=== PATIENT | female | born 1970 | race Caucasian/White ===

== ENCOUNTER 2018-04-20 14:38 | Emergency (ER) | payer MEDICAID ==
[~2018-04-20] VITALS: Ht 167.6 cm; Wt 43.0 kg
[2018-04-20 15:17] LABS: URINE HCG NEGATIVE (NEG)
[2018-04-20 15:19] LABS: BASOPHILS % (AUTO) 0.3 % (0-1); EOSINOPHILS # (AUTO) 0.4 X10'3 (0-0.9); EOSINOPHILS % (AUTO) 2.8 % (0-6); HEMATOCRIT 43.4 % (35.0-45.0); HEMOGLOBIN 14.3 g/dl (12.0-16.0); LYMPHOCYTES % (AUTO) 14.2 % (21-51); MEAN CORPUSCULAR HEMOGLOBIN 28.9 PG (27.0-31.0); MEAN CORPUSCULAR VOLUME 87.6 FL (78-98); MEAN PLATELET VOLUME 9.8 FL (7.4-10.4); MONOCYTES # (AUTO) 0.8 X10'3 (0-0.9); MONOCYTES % (AUTO) 5.7 % (2-12); PLATELET COUNT 248 X10'3 (140-440); RED BLOOD COUNT 4.95 X10'6 (4.20-5.60); RED CELL DISTRIBUTION WIDTH 13.1 % (11.5-14.5); WHITE BLOOD COUNT 14.4 X10'3 (4.5-11.0)
[2018-04-20 15:21] LABS: CLARITY,URINE SLIGHTLY CLOUDY (Clear); COLOR,URINE YELLOW (Yellow); GLUCOSE, URINE NEGATIVE (Neg); KETONES,URINE NEGATIVE (Neg); LEUKOCYTE ESTERASE ,URINE NEGATIVE (Neg); NITRITES, URINE POSITIVE (Neg); OCCULT BLOOD,URINE NEGATIVE (Neg); PROTEIN,URINE NEGATIVE (Neg); UROBILINOGEN,URINE 0.2 E.U/dL (0.2-1.0)
[2018-04-20 15:23] LABS: UA COLLECTION TYPE CLN CATCH MIDSTREAM
[2018-04-20 15:29] LABS: BACTERIA,URINE 4+ /HPF (Neg); MUCUS STRANDS NONE SEEN /LPF (Neg); RBC,URINE 0-2 /HPF (0-2); SQUAMOUS EPITHELIAL CELL,UR MODERATE /LPF (FEW); WBC,URINE 0-4 /HPF (0-4)
[2018-04-20 15:32] LABS: PROTHROMBIN TIME 10.6 SECONDS (9.0-12.0)
[2018-04-20 15:46] LABS: ALANINE AMINOTRANSFERASE 15 U/L (12-78); ALBUMIN 4.4 G/DL (3.4-5.0); ALBUMIN/GLOBULIN RATIO 1.3 (1.1-1.5); ALKALINE PHOSPHATASE 82 IU/L (46-116); AMYLASE 129 U/L (25-115); ANION GAP 12 (8-16); ASPARTATE AMINO TRANSFERASE 11 U/L (10-37); BILIRUBIN,TOTAL 0.6 MG/DL (0.1-1.0); BLOOD UREA NITROGEN 14 MG/DL (7-18); BUN/CREATININE RATIO 16.7 (6.6-38.0); CALCIUM 9.2 MG/DL (8.5-10.1); CHLORIDE 102 MMOL/L (99-107); CREATININE 0.84 MG/DL (0.40-0.90); GLUCOSE 119 MG/DL (70-104); LIPASE 477 U/L (73-393); POTASSIUM 3.6 MMOL/L (3.5-5.1); SODIUM 138 MMOL/L (135-145); TOTAL CARBON DIOXIDE 24.4 MMOL/L (24-32); TOTAL PROTEIN 7.7 G/DL (6.4-8.2); eGFR 73 ML/MIN
[2018-04-20 15:54] LABS: TOTAL CELLS COUNTED 100
[2018-04-20 15:55] LABS: PLATELET ESTIMATE NORMAL
[2018-04-20] MEDS ORDERED: iohexol 300mg/ml 100ml inj. ONE (17:44)
[2018-04-20] MEDS ORDERED: naproxen 500mg tablet PO ONE (18:45)
[2018-04-20] MEDS ORDERED: SULF1TAB49 PO (18:47)
[2018-04-20 19:06] VITALS: BP 132/78
== END 2018-04-20 19:13 | disposition home or self-care (01) ==
LOC: ER 14:39
DX: N39.0 Urinary tract infection, site not specified (principal); J44.9 Chronic obstructive pulmonary disease, unspecified; Z88.0 Allergy status to penicillin; Z88.6 Allergy status to analgesic agent; Z79.899 Other long term (current) drug therapy
CPT/HCPCS: 36415; 74177; 80053; 81001; 81025; 82150; 83690; 85025; 85610; 87077; 87088; 87186; 99284; Q9967

== ENCOUNTER 2018-07-26 23:36 | Emergency (ER) | payer MEDICAID ==
[~2018-07-26] VITALS: Ht 162.6 cm; Wt 44.3 kg
[2018-07-26 23:41] VITALS: BP 131/61
[2018-07-26] MEDS ORDERED: ALBU6.7H INH (23:49)
[2018-07-26] MEDS ORDERED: PRED20TA PO (23:49)
[2018-07-26] MEDS ORDERED: CEPH-571 PO (23:51)
== END 2018-07-26 23:56 | disposition home or self-care (01) ==
LOC: ER 23:36
DX: J32.9 Chronic sinusitis, unspecified (principal); J45.909 Unspecified asthma, uncomplicated; F17.200 Nicotine dependence, unspecified, uncomplicated; Z88.0 Allergy status to penicillin; Z88.6 Allergy status to analgesic agent; Z79.899 Other long term (current) drug therapy
CPT/HCPCS: 99283

== ENCOUNTER 2018-08-06 18:00 | Emergency (ER) | payer MEDICAID ==
[~2018-08-06] VITALS: Ht 167.6 cm; Wt 68.2 kg
[~2018-08-06 18:00] MED LIST: ALBU6.7H INH; CEPH-571 PO
[2018-08-06] MEDS ORDERED: predniSONE 20 mg tablet PO ONE (19:35)
[2018-08-06] MEDS ORDERED: ipratropium/albuterol 3ml nebule NEB ONE (19:35)
--- NOTE | 2018-08-06 20:03 | NUR ---
RT AT BEDSIDE.
[2018-08-06 20:13] LABS: BASOPHILS # (AUTO) 0.1 X10'3 (0-0.2); BASOPHILS % (AUTO) 0.6 % (0-1); EOSINOPHILS # (AUTO) 0.4 X10'3 (0-0.9); EOSINOPHILS % (AUTO) 2.5 % (0-6); HEMATOCRIT 39.8 % (35.0-45.0); HEMOGLOBIN 12.8 g/dl (12.0-16.0); LYMPHOCYTES # (AUTO) 2.4 X10'3 (1.1-4.8); LYMPHOCYTES % (AUTO) 16.1 % (21-51); MEAN CORPUSCULAR HEMOGLOBIN 28.3 PG (27.0-31.0); MEAN CORPUSCULAR HGB CONC 32.3 g/dL (33.0-36.5); MEAN CORPUSCULAR VOLUME 87.9 FL (78-98); MEAN PLATELET VOLUME 9.6 FL (7.4-10.4); MONOCYTES # (AUTO) 1.1 X10'3 (0-0.9); MONOCYTES % (AUTO) 7.5 % (2-12); NEUTROPHILS % (AUTO) 73.3 % (42-75); PLATELET COUNT 287 X10'3 (140-440); RED BLOOD COUNT 4.53 X10'6 (4.20-5.60); RED CELL DISTRIBUTION WIDTH 13.3 % (11.5-14.5); WHITE BLOOD COUNT 15.1 X10'3 (4.5-11.0)
[2018-08-06] MEDS ORDERED: BENZ-16 PO (20:24)
[2018-08-06] MEDS ORDERED: GUAI237S46 PO (20:24)
[2018-08-06] MEDS ORDERED: PRED20TA PO (20:24)
[2018-08-06 20:36] VITALS: BP 109/84
[2018-08-06 20:39] LABS: ALANINE AMINOTRANSFERASE 42 U/L (12-78); ALBUMIN 3.4 G/DL (3.4-5.0); ALKALINE PHOSPHATASE 75 IU/L (46-116); ANION GAP 7 (8-16); ASPARTATE AMINO TRANSFERASE 14 U/L (10-37); BILIRUBIN,TOTAL 0.3 MG/DL (0.1-1.0); BLOOD UREA NITROGEN 9 MG/DL (7-18); BUN/CREATININE RATIO 11.3 (6.6-38.0); CALCIUM 9.2 MG/DL (8.5-10.1); CHLORIDE 106 MMOL/L (99-107); GLUCOSE 99 MG/DL (70-104); POTASSIUM 4.1 MMOL/L (3.5-5.1); SODIUM 140 MMOL/L (135-145); TOTAL CARBON DIOXIDE 26.9 MMOL/L (24-32); TOTAL PROTEIN 6.7 G/DL (6.4-8.2); eGFR 78 ML/MIN
[2018-08-06 21:19] LABS: TOTAL CELLS COUNTED 100
[2018-08-06 21:20] LABS: PLATELET ESTIMATE NORMAL
== END 2018-08-06 20:37 | disposition home or self-care (01) ==
LOC: ER 18:00
DX: J44.1 Chronic obstructive pulmonary disease with (acute) exacerbation (principal); F17.200 Nicotine dependence, unspecified, uncomplicated; Z88.0 Allergy status to penicillin; Z88.6 Allergy status to analgesic agent; Z79.899 Other long term (current) drug therapy
CPT/HCPCS: 36415; 71045; 80053; 85025; 94640; 94760; 99284; J7512

== ENCOUNTER 2021-01-20 19:13 | Emergency (ER) | payer MEDICAID ==
[~2021-01-20] VITALS: Ht 165.1 cm; Wt 50.0 kg
[~2021-01-20 19:13] MED LIST changes: -ALBU6.7H INH; +ALBU6.7H9 INH
--- NOTE | 2021-01-20 20:25 | NUR ---
PT TOOK HER C COLLAR OFF, IS LYING ACROSS THE ER CHAIRS, HAD BEEN LYING ON THE FLOOR AT ONE POINT
[2021-01-20] MEDS ORDERED: ketorolac trometh. 30mg/ml inj. IM ONE (22:40)
[2021-01-20 22:51] VITALS: BP 120/62
== END 2021-01-20 22:52 | disposition home or self-care (01) ==
LOC: ER 19:14
DX: S32.10XA Unspecified fracture of sacrum, initial encounter for closed fracture (principal); J44.9 Chronic obstructive pulmonary disease, unspecified; Z88.0 Allergy status to penicillin; Z88.6 Allergy status to analgesic agent; Z79.899 Other long term (current) drug therapy; W19.XXXA Unspecified fall, initial encounter; Y93.89 Activity, other specified; Y92.89 Other specified places as the place of occurrence of the external cause; Y99.8 Other external cause status
CPT/HCPCS: 72110; 72220; 96372; 99284; J1885

== ENCOUNTER 2022-08-12 22:50 | Emergency (ER) | payer MEDICAID ==
[~2022-08-12] VITALS: Ht 154.9 cm; Wt 54.5 kg
[~2022-08-12 22:50] MED LIST changes: +ALBU6.7H14 INH; -ALBU6.7H9 INH
[2022-08-12 23:14] VITALS: BP 147/97
== END 2022-08-13 00:15 | disposition home or self-care (01) ==
LOC: ER 22:51
DX: F41.9 Anxiety disorder, unspecified (principal); J44.9 Chronic obstructive pulmonary disease, unspecified; F15.20 Other stimulant dependence, uncomplicated; Z88.0 Allergy status to penicillin; Z88.6 Allergy status to analgesic agent
CPT/HCPCS: 99283; 99285

== ENCOUNTER 2024-06-06 20:11 | Emergency (ER) | payer MEDICAID ==
[~2024-06-06] VITALS: Ht 167.6 cm; Wt 50.0 kg
[2024-06-06] MEDS ORDERED: NAPR-56 PO (21:19)
[2024-06-06] MEDS: HYDROcodone/acetaminophen 10/325mg tab PO ONE (21:20)
[2024-06-06] MEDS: naproxen 500mg tablet PO ONE (21:20)
[2024-06-06 21:31] VITALS: BP 151/89; PULSE 90; RESP 16; TEMP 97.9; O2SAT 98
== END 2024-06-06 21:34 | disposition home or self-care (01) ==
LOC: ER 20:12
DX: S93.601A Unspecified sprain of right foot, initial encounter (principal); J44.9 Chronic obstructive pulmonary disease, unspecified; F15.90 Other stimulant use, unspecified, uncomplicated; F17.210 Nicotine dependence, cigarettes, uncomplicated; Z88.0 Allergy status to penicillin; X50.1XXA Overexertion from prolonged static or awkward postures, initial encounter; Y93.89 Activity, other specified; Y92.89 Other specified places as the place of occurrence of the external cause; Y99.8 Other external cause status
CPT/HCPCS: 73610; 73630; 99284; A6449

== ENCOUNTER 2024-09-29 09:14 | Emergency (ER) | payer MEDICAID ==
[~2024-09-29] VITALS: Ht 165.1 cm; Wt 45.2 kg
[2024-09-29 09:18] VITALS: TEMP 98.1
--- NOTE | 2024-09-29 09:27 | ELECTROCARDIOGRAPH REPORT ---
[facility] Test Date: 2024-09-29 Test Time: 09:24:43 Pat Name: SHAWANDA ALLISON Department: [facility]-ER Patient ID: [facility]-[id number] Room: Gender: F Director Long Term Care: JACOB : 1970 Requested By: CLAUDINE FERNANDEZ Order Number: [id number] Reading MD: Measurements Intervals Mutual Rate: 88 P: 83 SD: 142 QRS: 268 QRSD: 106 T: 76 QT: 388 QTc: 470 Interpretive Statements Sinus rhythm Right atrial enlargement LAD, consider left anterior fascicular block Probable anteroseptal infarct, old Baseline wander in lead(s) I,III,aVL Please click the below link to view image of tracing.
[2024-09-29 10:00] LABS: BASOPHILS # (AUTO) 0.1 X10'3 (0-0.2); BASOPHILS % (AUTO) 0.8 % (0-1); EOSINOPHILS # (AUTO) 0.6 X10'3 (0-0.9); EOSINOPHILS % (AUTO) 7.1 % (0-6); HEMATOCRIT 40.3 % (35.0-45.0); HEMOGLOBIN 12.9 g/dl (12.0-16.0); LYMPHOCYTES # (AUTO) 1.2 X10'3 (1.1-4.8); LYMPHOCYTES % (AUTO) 15.9 % (21-51); MEAN CORPUSCULAR HEMOGLOBIN 27.1 PG (27.0-31.0); MEAN CORPUSCULAR HGB CONC 32.1 g/dL (33.0-36.5); MEAN CORPUSCULAR VOLUME 84.5 FL (78-98); MEAN PLATELET VOLUME 9.1 FL (7.4-10.4); MONOCYTES # (AUTO) 0.7 X10'3 (0-0.9); NEUTROPHILS # (AUTO) 5.2 X10'3 (1.8-7.7); NEUTROPHILS % (AUTO) 67.2 % (42-75); PLATELET COUNT 320 X10'3 (140-440); RED BLOOD COUNT 4.77 X10'6 (4.20-5.60); RED CELL DISTRIBUTION WIDTH 15.1 % (11.5-14.5); WHITE BLOOD COUNT 7.8 X10'3 (4.5-11.0)
[2024-09-29 10:04] LABS: ALANINE AMINOTRANSFERASE 23 U/L (12-78); ALBUMIN 3.9 G/DL (3.4-5.0); ALBUMIN/GLOBULIN RATIO 0.9 (1.1-1.5); ALKALINE PHOSPHATASE 104 IU/L (46-116); ANION GAP 2 (8-16); ASPARTATE AMINO TRANSFERASE 20 U/L (10-37); BILIRUBIN,TOTAL 0.4 MG/DL (0.1-1.0); BLOOD UREA NITROGEN 29 MG/DL (7-18); CALCIUM 9.3 MG/DL (8.5-10.1); CHLORIDE 105 MMOL/L (99-107); CREATININE 1.32 MG/DL (0.40-0.90); GLUCOSE 70 MG/DL (70-104); POTASSIUM 4.9 MMOL/L (3.5-5.1); SODIUM 139 MMOL/L (135-145); TOTAL CARBON DIOXIDE 31.7 MMOL/L (24-32); TOTAL PROTEIN 8.2 G/DL (6.4-8.2); eCRCL 36 ML/MIN; eGFR 42 ML/MIN
--- NOTE | 2024-09-29 10:53 | Physician Documentation ---
History of Present Illness ~ Chief Complaint: Hypertension Stated Complaint: HIGH BP Time Seen by MD: 10:23 [facility] Mode of Arrival: POV HPI Patient is seen today with complaints of high blood pressure and some shortness of breath on exertion more than usual. Patient states that walking across the block up a hill she feels little more short of breath than usual. Patient denies any chest pain or abdominal pain or nausea, vomiting, diarrhea. Patient states she is now about a week or two clean from methamphetamines. Patient is currently in a drug rehab program. Patient denies previously taking any blood pressure medications. Patient has no other concern or complaint at this time. Medication Reconciliation Allergies: Coded Allergies: Sulfa (Sulfonamide Antibiotics) (Verified Allergy, Intermediate, rash, 09/29/24) trimethoprim (Verified Allergy, Intermediate, rash, 09/29/24) Penicillins (Verified Allergy, Unknown, 04/20/18) Scheduled Albuterol Sulfate (Proventil Hfa), 2 PUFFS INH Q6H Cephalexin (Keflex), 1 CAP PO Q6H Past Medical History Past Medical History: Asthma, COPD Past Surgical History: noncontributory Alcohol Use: Occasionally Drug Use: methamphetamine Lives In: Homeless Review of Systems Constitutional: Denies: chills, fever, weakness Eyes: Denies: pain, blurred vision ENT: Denies: ear pain, nose pain, throat pain, mouth pain Respiratory: Denies: cough, shortness of breath Cardiovascular: Denies: chest pain, palpitations Gastrointestinal: Denies: abdominal pain, nausea, vomiting Genitourinary: Denies: burning, dysuria Female Genitalia: Denies: vaginal discharge, pelvic pain Neurological: Denies: headache, dizziness Musculoskeletal: Denies: pain, swelling Integumentary: Denies: rash, lesions Allergic/Immunologic: Denies: hives, itching Hematologic/Lymphatic: Denies: no symptoms reported Psychiatric: Denies: depression, anxiety Physical Exam Vital Signs: Temperature: 98.1, Source: Temporal, Heart Rate: 80, Respiratory Rate: 25, BP: 176/108, Pulse Oximetry: 97, Weight: 45.200 Oxygen Flow Rate: 0 Physical Exam General: Awake and Alert, no acute distress. HEENT: Conjunctiva pink, Sclera clear, Mucus Membranes moist. Neck: Supple without masses and tenderness. Resp: Unlabored. Lungs clear to auscultation bilaterally. Heart: Regular Rate and rhythm, normal S1 and S2 without murmur, rub or gallop. Abdomen: Soft and non tender no organomegaly Extremities: No cyanosis,clubbing or edema. Skin: Warm and Dry. Progress Results/Orders Results/Orders Completed Orders - KEENA NOLAN Clonidine Tablet (Catapres Tablet) (09/29/24 10:49) Medications Received in ER Medications (Trade) Dose Ordered Sig/Jenni Route PRN Reason Start Time Stop Time Status Last Admin Dose Admin (Catapres tablet) 0.1 mg ONCE STAT PO 09/29/24 10:49 09/29/24 10:57 DC 09/29/24 11:15 0.1 MG Vital Signs 09/29/24 09/29/24 09/29/24 09:18 09:52 10:30 Temp 98.1 Pulse 92 80 Resp 18 25 B/P (MAP) 163/109 176/108 (130) Pulse Ox 98 97 O2 Flow Rate 0 0 Laboratory Tests Test 09/29/24 09:33 White Blood Count 7.8 Red Blood Count 4.77 Hemoglobin 12.9 Hematocrit 40.3 Mean Corpuscular Volume 84.5 Mean Corpuscular Hemoglobin 27.1 Mean Corpuscular Hemoglobin Concent 32.1 L Red Cell Distribution Width 15.1 H Platelet Count 320 Mean Platelet Volume 9.1 Neutrophils (%) (Auto) 67.2 Lymphocytes (%) (Auto) 15.9 L Monocytes (%) (Auto) 9.0 Eosinophils (%) (Auto) 7.1 H Basophils (%) (Auto) 0.8 Neutrophils # (Auto) 5.2 Lymphocytes # (Auto) 1.2 Monocytes # (Auto) 0.7 Eosinophils # (Auto) 0.6 Basophils # (Auto) 0.1 CBC Comment Sodium Level 139 Potassium Level 4.9 Chloride Level 105 Carbon Dioxide Level 31.7 Anion Gap 2 L Blood Urea Nitrogen 29 H Creatinine 1.32 H Estimated GFR/1.73 m2 42 BUN/Creatinine Ratio 22.0 H Glucose Level 70 Calcium Level 9.3 Total Bilirubin 0.4 Aspartate Amino Transf (AST/SGOT) 20 Alanine Aminotransferase (ALT/SGPT) 23 Alkaline Phosphatase 104 Troponin I High Sensitivity 13 Pro-B-Type Natriuretic Peptide 1864 H Total Protein 8.2 Albumin 3.9 Globulin 4.3 Albumin/Globulin Ratio 0.9 L Chemistry Comments EKG/XRAY/CT/US/VASC/MRI EKG : Additional Comment EKG interpreted by myself today shows sinus rhythm, regular rate at 88 beats per minute, right atrial enlargement Medical Decision Making Findings Patient is seen today with complaints of high blood pressure and some shortness of breath on exertion more than usual. Patient states that walking across the block up a hill she feels little more short of breath than usual. Patient denies any chest pain or abdominal pain or nausea, vomiting, diarrhea. Patient states she is now about a week or two clean from methamphetamines. Patient is currently in a drug rehab program. Patient denies previously taking any blood pressure medications. Patient has no other concern or complaint at this time. Patient was given a dose of clonidine 0.1 mg by mouth in the ED today. Patient's labs and EKG are largely unremarkable. I strongly advised patient discontinue the use of all methamphetamines. A prescription of lisinopril 20 mg one tab once a day sent to patient's pharmacy. Patient will follow up with primary care as soon as possible and get referral to Cardiology for further eval and treatment and for monitoring and treatment of her hypertension. Patient will return to ED with any worsening, concerning or changing symptoms. Departure Disposition: HOME / SELF CARE / HOMELESS Impression: Primary Impression: Benign hypertension Additional Impressions: CHF (congestive heart failure) Qualified Codes: I50.9 - Heart failure, unspecified Methamphetamine abuse Condition: Stable Discharge Instructions: Hypertension, Adult Additional Instructions: Patient was given a dose of clonidine 0.1 mg by mouth in the ED today. Patient's labs and EKG are largely unremarkable. I strongly advised patient discontinue the use of all methamphetamines. A prescription of lisinopril 20 mg one tab once a day sent to patient's pharmacy. Patient will follow up with primary care as soon as possible and get referral to Cardiology for further eval and treatment and for monitoring and treatment of her hypertension. Patient wi ll return to ED with any worsening, concerning or changing symptoms. Referrals: NO PRIMARY CARE PROVIDER (PCP) Prescriptions Lisinopril (Lisinopril) 20 Mg Tablet 1 TAB PO DAILY for 30 Days, #30 TAB Prov: KEENA NOLAN 09/29/24 Signature Scribe Signature: No scribe Attestation: No scribe KEENA NOLAN September 29, 2024 10:53
[2024-09-29] MEDS: cloNIDine 0.1 mg tablet PO STA (11:15)
[2024-09-29 11:18] LABS: PRO BRAIN NATRIURETIC PEPTIDE 1864 PG/ML (0-125)
[2024-09-29] MEDS ORDERED: LISI20TA28 PO (12:01)
[2024-09-29 12:38] VITALS: BP 168/112; PULSE 79; RESP 26; O2SAT 97
== END 2024-09-29 12:39 | disposition home or self-care (01) ==
LOC: ER 09:15
DX: I11.0 Hypertensive heart disease with heart failure (principal); I50.9 Heart failure, unspecified; F15.10 Other stimulant abuse, uncomplicated; J44.9 Chronic obstructive pulmonary disease, unspecified; Z88.2 Allergy status to sulfonamides; Z88.0 Allergy status to penicillin; Z79.899 Other long term (current) drug therapy; Z59.00 Homelessness unspecified
CPT/HCPCS: 36415; 80053; 83880; 84484; 85025; 93005; 99284